=== PATIENT | male | born 1975 ===

== ENCOUNTER 2018-09-21 10:58 | Emergency (ER) | payer SELFPAY ==
[2018-09-21] MEDS ORDERED: Sodium Chloride 0.9% 1,000 ML IV STA ×2 (11:08→11:41)
[2018-09-21] MEDS ORDERED: Morphine 4 MG/ML VIAL ONE (11:09)
[2018-09-21] MEDS ORDERED: Sodium Chloride 0.9% 100 ML ONE (11:20)
[2018-09-21] MEDS ORDERED: Iohexol 300 50 ML ONE (11:20)
--- NOTE | 2018-09-21 11:21 | ED PDOC ---
HPI: Trauma/Fall - HPI Time Seen by Provider: 09/21/18 11:07 Chief Complaint (Provider): abdominal trauma History Per: Patient, EMS History/Exam Limitations: no limitations Onset/Duration Of Symptoms: Sudden Onset Injury Occurred (Timing): Just Before Arrival Anterior Full Body: 1 - pain Severity: Severe Additional Complaint(s): 43yo male arrives via BLS for reported crush injury to lower abdomen via a compressor hitch which pinned him between machinery and another car. Per police he screamed and bystander helped him get free, walked about 50feet where he was helped to ground, c/o severe lower abd pain. No reports head trauma. Arrived in ED in painful distress, no backboard. History otherwise limited. Past Medical History Reviewed: Historical Data, Nursing Documentation, Vital Signs - Medical History PMH: No Chronic Diseases - Family History Family History: States: Unknown Family Hx - Home Medications Home Medications: Ambulatory Orders Medication Instructions Recorded No Known Home Med 09/21/18 - Allergies Allergies/Adverse Reactions: Allergies Allergy/AdvReac Type Severity Reaction Status Date / Time Unobtainable Allergy Verified 09/21/18 11:06 Review of Systems Review Of Systems: ROS cannot be obtained secondary to pt's inabilty to answer questions. (painful distress) Cardiovascular: Negative for: Chest Pain Gastrointestinal: Positive for: Abdominal Pain (upper) Neurological: Positive for: Numbness (bilateral legs and feet) Physical Exam - Reviewed Nursing Documentation Reviewed: Yes Vital Signs Reviewed: Yes - Physical Exam Appears: Positive for: In Acute Distress (painful distress but GCS 15) Head Exam: Positive for: ATRAUMATIC, NORMAL INSPECTION, NORMOCEPHALIC Skin: Positive for: Normal Color, Warm, DRY Eye Exam: Positive for: EOMI, Normal appearance, PERRL ENT: Positive for: Normal ENT Inspection Neck: Positive for: Normal, Painless ROM Cardiovascular/Chest: Positive for: Tachycardia Respiratory: Positive for: Normal Breath Sounds, Other (no chest wall tenderness). Negative for: Respiratory Distress Pulses-Dorsalis Pedis (L): 2+ Pulses-Dorsalis Pedis (R): 2+ Pulses-Radial (L): 2+ Pulses-Radial (R): 2+ Gastrointestinal/Abdominal: Positive for: Tenderness, Guarding Back: Positive for: Normal Inspection Extremity: Positive for: Normal ROM (toes of bilateral feet with sensation intact). Negative for: Tenderness, Deformity, Swelling Neurological/Psych: Positive for: Awake, Alert, Other (is able to move toes b/l sensation grossly intact to LE). Negative for: Motor/Sensory Deficits - Laboratory Results Result Diagrams: 09/21/18 11:14 09/21/18 11:14 - ECG ECG: Positive for: Interpreted By Ct ECG Rhythm: Positive for: Normal QRS, Normal ST Segment, Sinus Rhythm O2 Sat by Pulse Oximetry: 99 Pulse Ox Interpretation: Normal - Radiology X-Ray: Interpreted by Ct X-Ray Interpretation: Other (pelvis neg gross fracture portable ) - Physician Consult Information Outcome Of Conversation: trauma service at [facility], ED at [facility] - Critical Care Total Time (In Min): 45 Comments: pt required immediate bedside attention due to trauma, attended patient in CT suite, and recurrent bedside evals to assess for stability for transfer and definitive management. Medical Decision Making Medical Decision Making: Time: 1107 Initial Plan: preliminary ABD ultrasound in progress by Dr. Hull. * Labs * CXR * IV fluids * XR pelvis Time: 1110 --Accucheck at 133mg/dL. Morphine 4mg IV administered. Time: 1115 --preliminary pelvic XR performed. CT ABD/pelvis/chest with emergency contrast ordered. Time: 1145 --Case discussed with trauma resident, Dr. Hughes, at [facility] for ER to ER transfer. Time: 1150 --Patient accepted for admission as per Dr. Maryjane Salgado, [facility] ER attending physician. Vitals reviewed: HR at 76; BP at 160/90. Patient reports persistent pain. Additional analgesia ordered. Time: 1203 --CT CHEST WITH CONTRAST: LUNGS: No evidence of lung contusion focal infiltrate or consolidation in the lungs. MEDIASTINUM: Unremarkable. Normal caliber aorta and pulmonary arterial trunk. No aortic dissection. Normal size heart. LYMPH NODES: Unremarkable. PLEURA: Unremarkable. No pneumothorax. No pleural fluid. BONES: Unremarkable. OTHER FINDINGS: None. CT ABDOMEN AND PELVIS: LIVER: Moderate diffuse fatty liver infiltration is noted. No evidence of hematoma or large laceration in the liver. GALLBLADDER AND BILE DUCTS: Unremarkable. PANCREAS: Unremarkable. No gross lesion or ductal dilatation. SPLEEN: Unremarkable. ADRENALS: Unremarkable. No mass. KIDNEYS AND URETERS: Unremarkable. No hydronephrosis. No solid mass. VASCULATURE: Small foci of atherosclerotic calcification noted in the abdominal aorta. Unremarkable. No aortic aneurysm. BOWEL: Fat stranding surrounding the small and large bowel loops in the lower abdomen noted. Possible sigmoid colon wall thickening versus incomplete distension. No evidence of bowel obstruction or pneumatosis. APPENDIX: No evidence of appendicitis. PERITONEUM: There is a small amount of high attenuation fluid in the lower abdomen and pelvis suspicious for hemoperitoneum. No evidence of free air. Mesenteric fat stranding and small densities noted in the lower abdomen. LYMPH NODES: Unremarkable. No enlarged lymph nodes. BLADDER: Unremarkable. REPRODUCTIVE: Unremarkable. BONES: No acute fracture. OTHER FINDINGS: None. IMPRESSION: Mesenteric fat stranding surrounding the small and large bowel loops in the lower abdomen likely represent acute posttraumatic changes. Small amount of high attenuation fluid in the lower abdomen and pelvis likely represent small hemorrhage. No evidence of upper abdomen solid organs laceration or hematoma. No evidence of acute traumatic changes in the chest. No evidence of acute displaced fracture in the spine. approx [id number] ALS in ED report given, vitals stable on leaving ED to trauma center as concern for occult bowel and vascular injury, consent obtained via PEGGY Cox who translated, patient stated he was in too much pain to sign. ----- Scribe Attestation: Documented by Nga Gan, acting as a scribe for Riky Fields III, DO. Provider Scribe Attestation: All medical record entries made by the Scribe were at my direction and personally dictated by me. I have reviewed the chart and agree that the record accurately reflects my personal performance of the history, physical exam, medical decision making, and the department course for this patient. I have also personally directed, reviewed, and agree with the discharge instructions and disposition. Disposition - Clinical Impression Clinical Impression: Blunt abdominal trauma, Hemoperitoneum - Patient ED Disposition Is Patient to be Admitted: Yes Counseled Patient/Family Regarding: Studies Performed, Diagnosis, Need For Foll owup - Disposition Disposition: Other Institution ([facility] trauma) Disposition Time: 12:00 Condition: GUARDED Forms: [employer] (Maltese) - Pt Status Changed To: Hospital Disposition Of: Inpatient - Admit Certification Admit to Inpatient:: After my assessment, the patient will require hospitalization for at least two midnights. This is because of the severity of symptoms shown, intensity of services needed, and/or the medical risk in this patient being treated as an outpatient.
[2018-09-21 11:24] LABS: BASO # 0.1 K/uL (0.0-0.2); BASO % 0.5 % (0.0-2.0); EOS # 0.3 K/uL (0.0-0.7); EOS % 3.2 % (0.0-4.0); HEMOGLOBIN 15.5 g/dL (12.0-18.0); LYMPH # 6.3 K/uL (1.0-4.3); LYMPH % 57.6 % (20.0-40.0); MEAN CELL VOLUME 87.3 fl (80.0-94.0); MEAN CORPUSCULAR HEMOGLOBIN 29.4 pg (27.0-31.0); MEAN CORPUSCULAR HGB CONC 33.7 g/dL (33.0-37.0); MEAN PLATELET VOLUME 8.7 fl (7.2-11.7); MONO # 0.7 K/uL (0.0-0.8); MONO % 6.8 % (0.0-10.0); NEUT # 3.5 K/uL (1.8-7.0); NEUT % 31.9 % (50.0-75.0); NRBC % 0.1 % (0.0-0.0); PLATELET COUNT 185 K/uL (130-400); RBC 5.29 Mil/uL (4.40-5.90); RED CELL DISTRIBUTION WIDTH 13.4 % (11.5-14.5); WHITE BLOOD COUNT 10.9 K/uL (4.8-10.8)
[2018-09-21 11:27] LABS: VENOUS BLOOD GAS BASE EXCESS -1.3 mmol/L (0.0-2.0); VENOUS BLOOD GAS PCO2 21 mmHg (40-60); VENOUS BLOOD GAS PO2 54 mm/Hg (30-55); VENOUS BLOOD PH 7.56 (7.32-7.43)
[2018-09-21 11:31] LABS: INR 1.1; PROTHROMBIN TIME 12.1 Seconds (9.8-13.1)
[2018-09-21 11:34] LABS: PARTIAL THROMBOPLASTIN TIME 25.8 Seconds (25.6-37.1)
[2018-09-21 11:45] VITALS: TEMP 96.8
[2018-09-21 11:53] LABS: ALB/GLOB RATIO 1.3 (1.0-2.1); ALBUMIN 5.1 g/dL (3.5-5.0); ALT/SGPT 53 U/L (21-72); AST/SGOT 48 U/L (17-59); BLOOD UREA NITROGEN 19 mg/dl (9-20); CALCIUM 9.7 mg/dL (8.4-10.2); GFR NON-AFRICAN AMERICAN > 60
[2018-09-21] MEDS ORDERED: Morphine 4 MG/ML VIAL IV STA (11:54)
--- NOTE | 2018-09-21 12:07 | CT ---
Date of service: 09/21/2018 PROCEDURE: CT Chest, Abdomen and Pelvis with intravenous contrast HISTORY: crush injury trauma to the lower abdomen COMPARISON: None available. TECHNIQUE: IV dose administered: 98 cc of Omnipaque 300 intravenously. Axial and reformatted coronal and sagittal CT images of the chest abdomen and pelvis were obtained after IV contrast administration. Radiation dose: Total exam DLP = 0.0 mGy-cm. This CT exam was performed using one or more of the following dose reduction techniques: Automated exposure control, adjustment of the mA and/or kV according to patient size, and/or use of iterative reconstruction technique. FINDINGS: CT CHEST WITH CONTRAST: LUNGS: No evidence of lung contusion focal infiltrate or consolidation in the lungs. MEDIASTINUM: Unremarkable. Normal caliber aorta and pulmonary arterial trunk. No aortic dissection. Normal size heart. LYMPH NODES: Unremarkable. PLEURA: Unremarkable. No pneumothorax. No pleural fluid. BONES: Unremarkable. OTHER FINDINGS: None. CT ABDOMEN AND PELVIS: LIVER: Moderate diffuse fatty liver infiltration is noted. No evidence of hematoma or large laceration in the liver. GALLBLADDER AND BILE DUCTS: Unremarkable. PANCREAS: Unremarkable. No gross lesion or ductal dilatation. SPLEEN: Unremarkable. ADRENALS: Unremarkable. No mass. KIDNEYS AND URETERS: Unremarkable. No hydronephrosis. No solid mass. VASCULATURE: Small foci of atherosclerotic calcification noted in the abdominal aorta. Unremarkable. No aortic aneurysm. BOWEL: Fat stranding surrounding the small and large bowel loops in the lower abdomen noted. Possible sigmoid colon wall thickening versus incomplete distension. No evidence of bowel obstruction or pneumatosis. APPENDIX: No evidence of appendicitis. PERITONEUM: There is a small amount of high attenuation fluid in the lower abdomen and pelvis suspicious for hemoperitoneum. No evidence of free air. Mesenteric fat stranding and small densities noted in the lower abdomen. LYMPH NODES: Unremarkable. No enlarged lymph nodes. BLADDER: Unremarkable. REPRODUCTIVE: Unremarkable. BONES: No acute fracture. OTHER FINDINGS: None. IMPRESSION: Mesenteric fat stranding surrounding the small and large bowel loops in the lower abdomen likely represent acute posttraumatic changes. Small amount of high attenuation fluid in the lower abdomen and pelvis likely represent small hemorrhage. No evidence of upper abdomen solid organs laceration or hematoma. No evidence of acute traumatic changes in the chest. No evidence of acute displaced fracture in the spine.
[2018-09-21] MEDS ORDERED: Lactated Ringer's 1,000 ML IV SCH (12:15)
[2018-09-21 12:19] VITALS: PULSE 65; BMI 33.4
[2018-09-21 12:23] LABS: BANDS 1 % (0-2); EOSINOPHIL 1 % (0-7); LYMPHOCYTE 54 % (20-50); MONOCYTE 5 % (0-10); NEUTROPHIL 36 % (42-75); REACTIVE LYMPHOCYTES 3 % (0-0); TOTAL CELLS COUNTED 100
[2018-09-21 12:24] LABS: ANISOCYTOSIS SLIGHT; LARGE PLATELETS PRESENT; PLATELET CLUMPS PRESENT; PLATELET ESTIMATE NORMAL (NORMAL)
[2018-09-21 12:38] VITALS: O2SAT 99
[2018-09-21 12:42] VITALS: BP 169/86; RESP 22
--- NOTE | 2018-09-21 12:59 | RAD ---
Date of service: 09/21/2018 PROCEDURE: Radiographs of the pelvis. HISTORY: trauma COMPARISON: September 21, 2018. CT chest, abdomen and pelvis. TECHNIQUE: 1 view obtained. FINDINGS: BONES: Pelvic Bones: Unremarkable. Hips: Grossly unremarkable. JOINTS: Sacroiliac Joints: Unremarkable. Pubic Symphysis: Unremarkable. OTHER FINDINGS: None. IMPRESSION: Limited examination, single view, portable technique with overlying support apparatus. No meaningful information can be gleaned from this study. Follow-up CT scan was performed.
== END 2018-09-21 12:40 | disposition short-term general hospital (02) ==
LOC: H.ER 10:58
DX: S39.91XA Unspecified injury of abdomen, initial encounter (principal); W23.0XXA Caught, crushed, jammed, or pinched between moving objects, initial encounter; Y92.89 Other specified places as the place of occurrence of the external cause; K66.1 Hemoperitoneum
CPT/HCPCS: 71260; 72170; 74177; 80053; 82803; 82948; 85025; 85610; 85730; 86850; 86900; 96361; 96374; 96375; 96376; 99285; G0480; J1170; J2270; J2405; J7030; J7120; Q9967